=== PATIENT | female | born 1955 | race African-American/Black ===

== ENCOUNTER 2016-04-03 17:09 | Emergency (ER) | payer OTHER ==
[2016-04-03] MEDS ORDERED: Orphenadrine Citrate 60 MG/2 ML VIAL ONE (18:11)
[2016-04-03] MEDS ORDERED: Ketorolac Tromethamine 60 MG/2 ML VIAL ONE (18:11)
--- NOTE | 2016-04-04 01:54 | RAD ---
LUMBAR SPINE THREE VIEWS: HISTORY: Back pain. FINDINGS: The vertebral bodies are normal in height. There is some degenerative disk narrowing at L4-5 with a minimal spondylolisthesis and moderate degenerative facet changes. Pedicles appear intact. There are vascular calcifications noted. There is slight scoliotic change convex to the left. IMPRESSION: Arthritic changes and minimal scoliosis of the spine. No acute process. POS: [facility]
== END 2016-04-03 18:35 | disposition home or self-care (01) ==
LOC: NAV ERS 17:09
DX: M54.5 Low back pain (principal); I10 Essential (primary) hypertension; E11.9 Type 2 diabetes mellitus without complications; Z79.84 Long term (current) use of oral hypoglycemic drugs; Z79.899 Other long term (current) drug therapy
CPT/HCPCS: 72100; 96372